=== PATIENT | female | born 1985 | race Caucasian/White ===

== ENCOUNTER 2022-12-17 09:33 | Emergency (ER) | payer OTHER ==
[~2022-12-17] VITALS: Ht 154.9 cm; Wt 54.4 kg
[2022-12-17] MEDS ORDERED: ZESTRIL20 MG PO (10:10)
[2022-12-17] MEDS ORDERED: HUMIRA PEN40 MG/0.2 SQ (10:11)
[2022-12-17] MEDS ORDERED: ACID REDUCER20 M1 PO (10:11)
[2022-12-17] MEDS ORDERED: MELOXICAM7.5 MG PO (10:11)
== END 2022-12-17 13:37 | disposition home or self-care (01) ==
LOC: ER 09:33
DX: T65.91XA Toxic effect of unspecified substance, accidental (unintentional), initial encounter (principal)